=== PATIENT | female | born 1995 | race Caucasian/White ===

== ENCOUNTER 2017-02-10 14:27 | Emergency (ER) | payer BC ==
--- NOTE | 2017-02-10 15:43 | ER Document Report ---
ED General - General Chief Complaint: Congestion Stated Complaint: SORE THROAT Time Seen by Provider: 02/10/17 15:31 Mode of Arrival: Ambulatory Information source: Patient, Relative Notes: Patient is a 21-year-old female comes emergency room with a 48 hour onset of severe sore throat. She has been running low-grade temperatures the last couple days as well. She states it is difficult to swallow. Patient denies any shortness of breath. She has had a nonproductive cough as well. TRAVEL OUTSIDE OF THE [place] IN LAST 30 DAYS: No - HPI Patient complains to provider of: Sore throat Onset: Other - 2 days Onset/Duration: Gradual, Worse Quality of pain: Achy Severity: Moderate Pain Level: 3 Associated symptoms: Fever, Sore throat Exacerbated by: Other - Swallowing Relieved by: Denies Similar symptoms previously: No Recently seen / treated by doctor: No - Related Data Allergies/Adverse Reactions: No Known Allergies Allergy (Verified 02/10/17 14:29) Past Medical History - General Information source: Relative - Social History Smoking Status: Current Some Day Smoker Cigarette use (# per day): Yes Chew tobacco use (# tins/day): No Smoking Education Provided: Yes - 1-2 cigarettes a day Frequency of alcohol use: None Drug Abuse: None Family History: Reviewed & Not Pertinent Patient has suicidal ideation: No Patient has homicidal ideation: No Renal/ Medical History: Denies: Hx Peritoneal Dialysis Review of Systems - Review of Systems Constitutional: Fever EENT: Nose congestion, Difficulty swallowing Cardiovascular: No symptoms reported Respiratory: Cough Gastrointestinal: No symptoms reported Genitourinary: No symptoms reported Female Genitourinary: No symptoms reported Musculoskeletal: No symptoms reported Skin: No symptoms reported Hematologic/Lymphatic: No symptoms reported Neurological/Psychological: No symptoms reported -: Yes All other systems reviewed and negative Physical Exam - Vital signs Vitals: Temp Pulse Resp BP Pulse Ox 99.7 F 103 H 16 168/113 H 99 02/10/17 14:33 02/10/17 14:33 02/10/17 14:33 02/10/17 14:33 02/10/17 14:33 - General General appearance: Alert, Other - Uncomfortable appearing - HEENT Head: Normocephalic, Atraumatic Eyes: Normal Ears: Normal External canal: Normal Tympanic membrane: Normal. No: Bulging, Hemotympanum, Injected, Loss of landmarks, Perforation, Purulent effusion, Retracted, Serous effusion, Other Sinus: Swelling. No: Normal, Abnormal, Frontal, Mastoid, Maxillary, Redness, Tenderness, Other Nasal: No: Normal, Bloody discharge, Kristi deformity, Ecchymosis, Epistaxis, Purulent discharge, Septal hematoma, Swelling, Clear rhinorrhea, Other Mouth/Lips: No: Normal, Angioedema, Caries, Dental fracture, Laceration, Lesions , Other Pharynx: Erythema, Exudate, Other - Examination patient's posterior pharynx shows moderate amount of swelling to the tonsils with exudate noted bilaterally. There does seem to be a greater amount of exudate right side as well as slightly more edema and swelling. The uvula has moderate amount of erythema no exudate is noted. There is no encroachment upon the uvula. Posterior pharynx shows slight tinge of drainage clear in color. Neck: Anterior cervical chain, Lymphadenopathy. No: Normal, Posterior cervical chain, Brudzinski, Carotid bruit, Kernig's, Meningismus, Neck mass, Shotty nodes , Subcutaneous emphysema, Supple, Thyroid nodule, Thyromegally, Other - Respiratory Respiratory status: No respiratory distress Chest status: Nontender Breath sounds: Normal. No: Decreased air movement, Nonproductive cough, Productive cough, Rales, Rhonchi, Stridor, Wheezing, Other Chest palpation: Normal - Cardiovascular Rhythm: Tachycardia Murmur: No - Neurological Neuro grossly intact: Yes Cognition: Normal Orientation: AAOx4 Fernando Coma Scale Eye Opening: Spontaneous Fernando Coma Scale Verbal: Oriented Celina Coma Scale Motor: Obeys Commands Celina Coma Scale Total: 15 Speech: Normal - Skin Skin Temperature: Warm Skin Moisture: Dry Skin Color: Normal, [place] Course - Vital Signs Vital signs: Temp Pulse Resp BP Pulse Ox 99.7 F 103 H 16 168/113 H 99 02/10/17 14:33 02/10/17 14:33 02/10/17 14:33 02/10/17 14:33 02/10/17 14:33 - Transfer of Care Notes: 02/10/17 15:44 Physical examination patient's posterior pharynx pretty much gives a complete picture of patient having a pharyngitis/strep. At this time with that the visual confirmation and the there is a positive strep type smell. We will treat patient for a pharyngitis. I do not believe we need to do a culture at this time. Patient looks to healthy first presentation to be a mono kind of a presentation so I have informed her that if she does not get better come back for a recheck. Discharge - Discharge Clinical Impression: Pharyngitis Qualifiers: Pharyngitis/tonsillitis etiology: other specified organisms Qualified Code(s): J02.8 - Acute pharyngitis due to other specified organisms Instructions: Sore Throat ([facility]) Additional Instructions: Home rest. Medications prescribed. Take all of the antibiotics. Tylenol alternating with Motrin for aches pains and fever. Warm salt water gargles 3-4 times a day. If for any reason this does not feel 100% better in 48 hours return to ER for recheck. Prescriptions: Amoxicillin 1 tab PO TID #30 tab Prednisone 20 mg PO DAILY 4 Days #4 tablet Forms: Elevated Blood Pressure
[2017-02-10 15:57] VITALS: BP 158/98
== END 2017-02-10 15:54 | disposition home or self-care (01) ==
LOC: ER 14:27
DX: J02.9 Acute pharyngitis, unspecified (principal); J35.1 Hypertrophy of tonsils; R09.81 Nasal congestion; R13.10 Dysphagia, unspecified; R05 Cough; R50.9 Fever, unspecified; F17.210 Nicotine dependence, cigarettes, uncomplicated
CPT/HCPCS: 99282